=== PATIENT | male | born 1960 | race American Indian/Alaskan Native ===

== ENCOUNTER 2017-08-24 16:17 | Emergency (ER) | payer MEDICARE ==
[2017-08-24] MEDS ORDERED: NACL 0.9% 1000 ML 1,000 ML IV ONE (16:43)
[2017-08-24 17:15] LABS: Basophils # (Auto) 0.1 K/mm3 (0.0-0.1); Basophils % (Auto) 0.9 % (0.0-1.8); Eosinophils # (Auto) 0.1 K/mm3 (0.0-0.4); Eosinophils % (Auto) 0.6 % (0.0-4.3); Hematocrit 44.7 % (35.5-45.6); Hemoglobin 15.4 gm/dl (11.8-15.2); Lymphocytes # (Auto) 1.9 K/mm3 (1.2-5.4); Lymphocytes % (Auto) 20.7 % (13.4-35.0); Mean Corpuscular HGB Conc 35 % (32-34); Mean Corpuscular Hemoglobin 32 pg (28-32); Mean Corpuscular Volume 92 fl (84-94); Monocytes # (Auto) 0.9 K/mm3 (0.0-0.8); Monocytes % (Auto) 9.5 % (0.0-7.3); Platelet Count 195 K/mm3 (140-440); Red Blood Count 4.83 M/mm3 (3.65-5.03); Red Cell Distribution Width 14.8 % (13.2-15.2)
[2017-08-24 17:32] LABS: BUN/Creatinine Ratio TNR; Blood Urea Nitrogen TNR mg/dL (9-20)
[2017-08-24 17:33] LABS: Alanine Aminotransferase TNR units/L (7-56); Albumin TNR g/dL (3.9-5); Calcium TNR mg/dL (8.4-10.2); Hemolysis Index TNR
[2017-08-24 18:06] LABS: Albumin 4.8 g/dL (3.9-5); BUN/Creatinine Ratio 10; Blood Urea Nitrogen 14 mg/dL (9-20); Calcium 9.9 mg/dL (8.4-10.2); Hemolysis Index 287
[2017-08-24 18:09] LABS: Alanine Aminotransferase 29 units/L (7-56)
--- NOTE | 2017-08-24 18:23 | Emergency Department Report ---
ED General Adult HPI - General Chief complaint: Nausea/Vomiting/Diarrhea Stated complaint: MONROE/DIZZY/DEHYDRATED Time Seen by Provider: 08/24/17 16:40 Source: patient Mode of arrival: Ambulatory Limitations: No Limitations - History of Present Illness Initial comments: Patient is a 56-year-old [place] male with past medical history of inflammatory bowel disease and hepatitis C who is presenting with 2 days of headache and mild dizziness. Patient state he hasn't been eating well as last several days. Patient is denying any abdominal pain nausea does state he has some loose stools however patient also denies any fevers chills cough and body aches at this time. - Related Data Allergies Allergy/AdvReac Type Severity Reaction Status Date / Time No Known Allergies Allergy Unverified 08/24/17 16:27 ED Review of Systems ROS: Stated complaint: MONROE/DIZZY/DEHYDRATED Other details as noted in HPI Comment: All other systems reviewed and negative ED Past Medical Hx - Past Medical History Hx Hypertension: Yes Hx Liver Disease: Yes (chronic hep B) Hx Psychiatric Treatment: Yes (Major depression) Hx HIV: Yes (last CD4 05/2017 non-detectable) Additional medical history: IBS - Surgical History Additional Surgical History: multiple colonoscopy-2016 - Social History Smoking Status: Never Smoker Substance Use Type: None ED Physical Exam - General Limitations: No Limitations General appearance: alert, in no apparent distress - Head Head exam: Present: atraumatic, normocephalic - Eye Eye exam: Present: normal appearance - ENT ENT exam: Present: mucous membranes moist - Neck Neck exam: Present: normal inspection - Respiratory Respiratory exam: Present: normal lung sounds bilaterally. Absent: respiratory distress, wheezes, rales - Cardiovascular Cardiovascular Exam: Present: regular rate, normal rhythm. Absent: systolic murmur, diastolic murmur, rubs, gallop - GI/Abdominal GI/Abdominal exam: Present: soft, distended (chronically distended secondary his hepatitis B and mild ascites), normal bowel sounds. Absent: tenderness, guarding, rebound - Rectal Rectal exam: Present: deferred - Extremities Exam Extremities exam: Present: normal inspection - Back Exam Back exam: Present: normal inspection - Neurological Exam Neurological exam: Present: alert, oriented X3 - Psychiatric Psychiatric exam: Present: normal affect, normal mood - Skin Skin exam: Present: warm, dry, intact, normal color. Absent: rash ED Course Vital Signs 08/24/17 16:22 Temperature 97.9 F Pulse Rate 90 Respiratory 18 Rate Blood Pressure 127/90 O2 Sat by Pulse 97 Oximetry ED Medical Decision Making - Lab Data Result diagrams: 08/24/17 16:51 08/24/17 17:37 - Medical Decision Making The patient was seen here in the emergency department with his IV fluids and states he feels much improved. His laboratory studies are relatively within normal limits his potassium was 5.2 which is on the upper limits of normal however there was some slight hemolysis with his sample. Patient be discharged home at this time with follow-up with his care physicians. Critical care attestation.: If time is entered above; I have spent that time in minutes in the direct care of this critically ill patient, excluding procedure time. ED Disposition Clinical Impression: Dehydration Disposition: DC-01 TO HOME OR SELFCARE Is pt being admited?: No Does the pt Need Aspirin: No Condition: Stable Referrals: PRIMARY CARE, [Primary Care Provider] - 3-5 Days
[2017-08-24 18:50] VITALS: BP 124/80
== END 2017-08-24 18:25 | disposition home or self-care (01) ==
LOC: ED 16:17
DX: E86.0 Dehydration (principal); I10 Essential (primary) hypertension
CPT/HCPCS: 36415; 80053; 85025; 96360; 99283; J7030